=== PATIENT | female | born 1970 | race Caucasian/White ===

== ENCOUNTER → 2024-07-13 | Outpatient (CLI) | payer BC, SELFPAY ==
--- NOTE | 2024-07-13 12:15 | BI_ITS ---
EXAM: SCRN MAMM (CAD)W/LIBIA BILAT 07/13/2024 CLINICAL HISTORY: F, Age 54 y/o , SCREENING. Family history of breast cancer in her sister in her 40s. TECHNIQUE: Bilateral screening digital breast tomosynthesis with 2D and 3D images. Computer aided detection. COMPARISON: Baseline examination, no priors. FINDINGS: TISSUE DENSITY: The breast tissue is extremely dense which lowers the sensitivity of mammography. The mammogram demonstrates that the patient has dense breasts. Supplemental screening with whole breast ultrasound or MRI may be considered for further evaluation. Bilateral Breast Mammographic Findings: No significant masses, calcifications or other abnormalities are identified. BI/SCRN MAMM (CAD)W/LIBIA BILAT IMPRESSION: Right Breast: BIRADS 1 NEGATIVE. Left Breast: BIRADS 1 NEGATIVE. OVERALL FINAL ASSESSMENT: BIRADS 1 NEGATIVE. RECOMMENDATION: Routine annual follow-up in 1 Year A letter with findings and recommendations will be mailed to the patient. Reading Location: [id number]
--- NOTE | 2024-07-13 13:11 | US_ITS ---
PROCEDURE: THYROID 07/13/2024 REASON FOR EXAM: HASHIMOTOS TECHNIQUE: Thyroid ultrasound COMPARISON: None FINDINGS: Right thyroid lobe measures 4.3 cm x 1.3 cm x 1.5 cm. Left thyroid lobe measures 4 cm x 1.4 cm x 1.2 cm. Isthmus thickness is3 mm. Thyroid Size: Normal Background Echotexture: Normal Thyroid Nodules: None Other: US/Thyroid IMPRESSION: OVERALL FINAL ASSESSMENT: TI-RADS 1 Normal thyroid gland (no nodules). Reading Location: [place] [id number]
== END | disposition home or self-care (01) ==
PROVIDERS: PCP Physician Assistant; Referring Provider Physician Assistant; Visit Provider Physician Assistant
DX: Z12.31 Encounter for screening mammogram for malignant neoplasm of breast (principal); E06.3 Autoimmune thyroiditis; Z80.3 Family history of malignant neoplasm of breast
CPT/HCPCS: 76536; 77063; 77067